=== PATIENT | female | born 1980 ===

== ENCOUNTER 2018-03-19 08:31 | Emergency (ER) | payer MEDICAID ==
[2018-03-19 08:52] VITALS: BMI 34.3
[2018-03-19 09:24] LABS: HCG,QUALITATIVE URINE NEGATIVE (NEGATIVE)
[2018-03-19 09:26] LABS: SQUAMOUS EPITHIAL 2 /hpf (0-5); URINE BACTERIA RARE (<OCC); URINE BILIRUBIN NEGATIVE (NEGATIVE); URINE BLOOD NEGATIVE (NEGATIVE); URINE CLARITY Clear (Clear); URINE COLOR Straw (YELLOW); URINE GLUCOSE (UA) NORMAL (Normal); URINE LEUKOCYTE ESTERASE NEG Leu/uL (Negative); URINE PROTEIN NEGATIVE (NEGATIVE); URINE UROBILINOGEN NORMAL mg/dL (0.2-1.0)
--- NOTE | 2018-03-19 09:28 | C.PDOC ---
History Of Present Illness 37 y/o female with Hx of COPD presents to ED for complaints of mild left sided chest pain with deep inspiration that began 3 days ago. Patient states she smokes cigarettes. Patient also reports that she was diagnosed with sleep apnea but does not have a mask yet because she is "waiting on insurance to approve." Time Seen by Provider: 03/19/18 09:01 Chief Complaint (Nursing): Chest Pain History Per: Patient History/Exam Limitations: no limitations Onset/Duration Of Symptoms: Days (3) Current Symptoms Are (Timing): Still Present Quality: "Pain" Associated Symptoms: denies: Nausea Modifying Factors: None Exacerbating Factors: Deep Breathing Alleviating Factors: None Recent travel outside of the [place]: No Past Medical History Reviewed: Historical Data, Nursing Documentation, Vital Signs Vital Signs: Last Vital Signs Temp 98.5 F 03/19/18 11:58 Pulse 61 03/19/18 11:58 Resp 17 03/19/18 11:58 BP 103/55 L 03/19/18 11:58 Pulse Ox 97 03/19/18 13:10 - Medical History PMH: Asthma, COPD Family History: States: No Known Family Hx - Social History Hx Alcohol Use: No Hx Substance Use: Yes (former) - Immunization History Hx Tetanus Toxoid Vaccination: No Hx Influenza Vaccination: Yes Hx Pneumococcal Vaccination: No Review Of Systems Constitutional: Negative for: Fever, Chills Cardiovascular: Positive for: Chest Pain (Left sided with deep inspiration) Respiratory: Negative for: Cough, Shortness of Breath Gastrointestinal: Negative for: Nausea, Vomiting, Abdominal Pain, Diarrhea Skin: Negative for: Rash Neurological: Negative for: Weakness, Numbness Physical Exam - Physical Exam Appears: Non-toxic, No Acute Distress, Other (Multiple tattoos) Skin: Warm, Dry, No Rash Head: Atraumatic, Normacephalic Eye(s): bilateral: Normal Inspection, PERRL, EOMI Nose: Normal, No Discharge Oral Mucosa: Moist Neck: Supple Chest: Symmetrical, No Tenderness, Other (No digitally reproducible pain in chest wall; Chaperoned with nurse Elif) Cardiovascular: Rhythm Regular, No Murmur Respiratory: Normal Breath Sounds, No Decreased Breath Sounds, No Rales, No Rhonchi, No Wheezing Gastrointestinal/Abdominal: Soft, No Tenderness Extremity: Normal ROM, No Pedal Edema, No Deformity, No Swelling Extremity: Bilateral: Atraumatic, Normal Color And Temperature, Normal ROM Pulses: Left Dorsalis Pedis: Normal, Right Dorsalis Pedis: Normal Neurological/Psych: Oriented x3 (Awake and alert), Normal Speech, Normal Motor, Normal Sensation, Normal Reflexes, Other (No focal deficits ) Gait: Steady ED Course And Treatment - Laboratory Results Result Diagrams: 03/19/18 09:40 03/19/18 09:40 Lab Interpretation: Abnormal (bnp/trop neg, D-dimer 631H, tox + methadone) Urine POC: Negative ECG: Interpreted By Me ECG Rhythm: Sinus Rhythm O2 Sat by Pulse Oximetry: 97 (RA) Pulse Ox Interpretation: Normal - Radiology CXR: Interpreted by Me CXR Interpretation: Yes: No Acute Disease - Other Rad CXR X-Ray: Viewed By Me, Read By Radiologist Interpretation: IMPRESSION: Increased interstitial lung disease likely bronchitis. No discrete, focal infiltrates. - CT Scan/US Chest CT Other Rad Studies (CT/US): Read By Radiologist, Radiology Report Reviewed CT/US Interpretation: IMPRESSION: Unremarkable CT pulmonary angiogram. No pulmonary embolus. Interstitial lung disease/interstitial edema. Progress Note: 1300: c/o acid reflux s/s , h/o GERD, maalox 30 cc's given with improvment. Toradol IV for chest discomfort Reevaluation Time: 13:23 Reassessment Condition: Improved Medical Decision Making Medical Decision Making: Ordered EKG, CXR, blood work, urinalysis, and Chest CT. L chest discomfort mild elev d-dimer wtih no PE on CTA ? elev d-dimer related to impressive lower leg varicose veins? Toradol/NAIDS for chest discomfort SHAWNA: h/o + dx with "home" test refer for proper Sleep Study COPD lower airway dz/smoker still smoking quit smoking Methadone Therapy: h/o substance abuse continue Methadone 120 mg daily (opt [facility]) GERD: h/o same exacerbated by cigarettes and anxiety Improved with Maalox in ED PPI and Maalox tx educated. Disposition Doctor Will See Patient In The: Office Counseled Patient/Family Regarding: Studies Performed, Diagnosis - Disposition Disposition: HOME/ ROUTINE Disposition Time: 13:29 Condition: GOOD Forms: [facility] (Belizean) - Clinical Impression Clinical Impression: Chest discomfort, Sleep apnea, GERD (gastroesophageal reflux disease) - Scribe Statement The provider has reviewed the documentation as recorded by the Scribe Freddyenaz Richi All medical record entries made by the Beverley were at my direction and personally dictated by me. I have reviewed the chart and agree that the record accurately reflects my personal performance of the history, physical exam, medical decision making, and the department course for this patient. I have also personally directed, reviewed, and agree with the discharge instructions and disposition.
[2018-03-19 09:47] LABS: BASO % 0.6 % (0.0-2.0); EOS # 0.1 K/uL (0.0-0.7); EOS % 0.9 % (0.0-4.0); HEMOGLOBIN 13.4 g/dL (11.0-16.0); LYMPH # 1.6 K/uL (1.0-4.3); LYMPH % 24.9 % (20.0-40.0); MEAN CELL VOLUME 92.6 fL (81.0-99.0); MEAN CORPUSCULAR HGB CONC 34.6 g/dL (33.0-37.0); MONO # 0.6 K/uL (0.0-0.8); MONO % 9.3 % (0.0-10.0); NEUT % 64.3 % (50.0-75.0); RBC 4.18 Mil/uL (3.80-5.20); RED CELL DISTRIBUTION WIDTH 12.9 % (11.5-14.5); WHITE BLOOD COUNT 6.3 K/uL (4.8-10.8)
[2018-03-19 09:55] LABS: INR 1.1
[2018-03-19 09:57] LABS: BARBITURATES, UR NEGATIVE (NEGATIVE); BENZODIAZEPINES, UR NEGATIVE (NEGATIVE); OPIATES, UR NEGATIVE (NEGATIVE); PHENCYCLIDINE, UR NEGATIVE (NEGATIVE)
[2018-03-19 10:04] LABS: ALBUMIN 4.2 g/dL (3.5-5.0); ALT/SGPT 174 U/L (9-52); AST/SGOT 138 U/L (14-36); BLOOD UREA NITROGEN 11 mg/dL (7-17); CALCIUM 8.8 mg/dl (8.6-10.4); GFR AFRICAN-AMERICAN > 60; GFR NON-AFRICAN AMERICAN > 60
[2018-03-19 10:12] LABS: B-TYPE NATRIURETIC PEPTIDE 64.1 pg/mL (0-450)
--- NOTE | 2018-03-19 10:47 | RAD ---
HISTORY: Shortness of breath. COMPARISON: No prior. TECHNIQUE: Chest PA and lateral FINDINGS: LUNGS: Increased interstitial markings likely lower airway disease/ bronchitis. No discrete infiltrates. No evidence of mass or pulmonary nodules. PLEURA: No significant pleural effusion identified. No pneumothorax apparent. CARDIOVASCULAR: Normal. OSSEOUS STRUCTURES: No significant abnormalities. VISUALIZED UPPER ABDOMEN: Normal. OTHER FINDINGS: None. IMPRESSION: Increased interstitial lung disease likely bronchitis. No discrete, focal infiltrates. Concordant results with the preliminary interpretation rendered by the emergency department physician procedure.
[2018-03-19] MEDS ORDERED: Iodixanol 320 MG/ML 100 ML BOTTLE IV ONE (11:44)
[2018-03-19 12:50] VITALS: O2SAT 97
--- NOTE | 2018-03-19 13:04 | CT ---
PROCEDURE: CT Chest with contrast (Pulmonary Angiogram) HISTORY: L chest discomfort, d-dimer COMPARISON: March 19, 2018. Two-view chest. TECHNIQUE: Axial computed tomography images were obtained of the chest in the pulmonary arterial phase of enhancement. Coronal and sagittal reformatted images were created and reviewed. Maximum intensity projection (MIP) reconstructed images in the following planes: Axial and sagittal Intravenous contrast dose: 100 cc Visipaque 320. Mean Hounsfield unit values in the main pulmonary artery: 277.03 Radiation dose: Total exam DLP = 498.69 mGy-cm. This CT exam was performed using one or more of the following dose reduction techniques: Automated exposure control, adjustment of the mA and/or kV according to patient size, and/or use of iterative reconstruction technique. FINDINGS: PULMONARY ARTERIES: Unremarkable. No pulmonary embolism. AORTA: No acute findings. No thoracic aortic aneurysm. LUNGS: Increased interstitial markings which may represent a component of lower airway disease/ interstitial edema without focal infiltrate, suspicious pulmonary nodules or masses. PLEURAL SPACES: Unremarkable. No effusion or pneuomothorax. HEART: Unremarkable. No cardiomegaly. No significant pericardial effusion. LYMPH NODES: No lymphadenopathy. BONES, CHEST WALL: Unremarkable. No fracture or destructive lesion OTHER FINDINGS: Unremarkable. IMPRESSION: Unremarkable CT pulmonary angiogram. No pulmonary embolus. Interstitial lung disease/interstitial edema.
[2018-03-19] MEDS ORDERED: Alum-Mag Hydrox-Simethicone Susp (30 mL) PO STA (13:19)
[2018-03-19] MEDS ORDERED: Aluminum Hydroxide/Magnesium Hydroxide Susp (30 mL) ONE (13:22)
[2018-03-19 13:57] VITALS: BP 115/68; PULSE 67; RESP 20; TEMP 98.4
--- NOTE | 2018-03-20 22:33 | CARD ---
APPROVED REPORT EKG Measurement Heart [id number] <Conclusion> Normal sinus rhythm Normal ECG
== END 2018-03-19 13:56 | disposition home or self-care (01) ==
LOC: C.ER 08:31
DX: K21.9 Gastro-esophageal reflux disease without esophagitis (principal); G47.30 Sleep apnea, unspecified; R07.89 Other chest pain
CPT/HCPCS: 71046; 71275; 80053; 80324; 80345; 80346; 80349; 80353; 80358; 80361; 81001; 83880; 83992; 84484; 84703; 85025; 85378; 85610; 85730; 93005; 96374; 99285; J1885; Q9967

== ENCOUNTER 2018-12-11 21:57 | Emergency (ER) | payer MEDICAID ==
[2018-12-11 21:57] VITALS: BMI 34.3
[2018-12-11 22:09] VITALS: RESP 16
[2018-12-12 00:18] VITALS: BP 115/68; PULSE 68; TEMP 98; O2SAT 98
--- NOTE | 2018-12-12 00:18 | C.PDOC ---
History Of Present Illness 38 year old female with Hx of corneal ulcer to the left eye treated years ago with resolution presents states it has recurred again. Patient reports pain to the left eye for the past 2 weeks, she tried using some drops she had left over from the last time with no relief. She does not wear contacts. Denies fever or change in vision. Patient also is requesting a test, states her period is late. Time Seen by Provider: 12/11/18 22:43 Chief Complaint (Nursing): Eye Problem History Per: Patient History/Exam Limitations: no limitations Onset/Duration Of Symptoms: Days Current Symptoms Are (Timing): Still Present Injury To Eye?: No Wears Contact Lens?: No Associated Symptoms: Pain. denies: Decreased Vision, Other (Fever) Recent travel outside of the [place]: No Past Medical History Reviewed: Historical Data, Nursing Documentation, Vital Signs Vital Signs: Last Vital Signs Temp 97.8 F 12/11/18 22:07 Pulse 83 12/11/18 22:07 Resp 16 12/11/18 22:07 BP 135/82 12/11/18 22:07 Pulse Ox 98 12/11/18 22:07 - Medical History PMH: Anxiety, Asthma, COPD, Sleep Apnea Denies: Chronic Kidney Disease Family History: States: Unknown Family Hx - Social History Hx Alcohol Use: No Hx Substance Use: Yes (former) - Immunization History Hx Tetanus Toxoid Vaccination: No Hx Influenza Vaccination: Yes Hx Pneumococcal Vaccination: No Review Of Systems Constitutional: Negative for: Fever Eyes: Positive for: Pain. Negative for: Vision Change Physical Exam - Physical Exam Appears: Well, Non-toxic, No Acute Distress Skin: Normal Color, Warm, No Rash Head: Atraumatic, Normacephalic Eye(s): bilateral: PERRL, EOMI, right: Normal Inspection, left: Other (Lesion across top of cornea. No ciliary flush, no conjunctival injection, no e cchymosis.) Ear(s): Bilateral: Normal Nose: Normal Oral Mucosa: Moist Neck: Normal ROM, Supple Neurological/Psych: Oriented x3, Normal Speech, Normal Cranial Nerves (Grossly intact) ED Course And Treatment O2 Sat by Pulse Oximetry: 98 (Room air) Pulse Ox Interpretation: Normal Medical Decision Making Medical Decision Making: Antibiotic drops given and advised to follow up with ophthalmology, test was negative. Disposition Counseled Patient/Family Regarding: Diagnosis, Need For Followup, Rx Given - Disposition Referrals: Daniel Baez MD [Staff Provider] - Disposition: HOME/ ROUTINE Disposition Time: 00:18 Condition: STABLE Prescriptions: Ketorolac Tromethamine [Acular 5 ml] 1 drop OP Q6 PRN #5 ml PRN Reason: Pain, Moderate (4-7) Ofloxacin Ophth 0.3% [Ocuflox Ophth 0.3%] 1 drop OS QID #1 bottle Forms: [employer] (Azeri), General Discharge Instructions - Clinical Impression Clinical Impression: Corneal ulcer - PA / GRANULATING BLENDER / Resident Statement MD/DO has reviewed & agrees with the documentation as recorded. - Scribe Statement The provider has reviewed the documentation as recorded by the Scribjoanna Saldaña All medical record entries made by the Scribe were at my direction and personally dictated by me. I have reviewed the chart and agree that the record accurately reflects my personal performance of the history, physical exam, medical decision making, and the department course for this patient. I have also personally directed, reviewed, and agree with the discharge instructions and disposition.
== END 2018-12-12 00:26 | disposition home or self-care (01) ==
LOC: C.ER 21:57
DX: H16.002 Unspecified corneal ulcer, left eye (principal); J44.9 Chronic obstructive pulmonary disease, unspecified